=== PATIENT | male | born 1990 | race African-American/Black ===

== ENCOUNTER 2020-08-18 11:17 | Emergency (ER) | payer OTHER ==
--- NOTE | 2020-08-18 13:06 | ED Physician Documentation ---
History of Present Illness - Stated complaint Stated Complaint: R EAR PX - Chief complaint Chief Complaint: Heent - History obtained from History obtained from: Patient - Additonal information Additional information: Patient comes emergency department complaining of right ear pain that began 2 days ago. He denies fevers or chills. No upper respiratory symptoms. No allergies. Mild congestion. No trauma. The patient is not a swimmer. No diving or flying recently. He states he feels a pressure pain that wraps around the sides and bottom of his ear and that he hears a throbbing sound that sounds like chopper blades. No high-pitched tinnitus. No vertigo. Patient denies any neck injury. He states he is otherwise healthy. No specific dental pain or throat pain. Review of Systems Ten Systems: 10 systems reviewed and negative Constitutional: reports: Reviewed and negative Eyes: reports: Reviewed and negative Ears: reports: Ear pain, Tinnitus/ringing. denies: Drainage/discharge Nose: denies: Rhinorrhea / runny nose, Congestion Throat: reports: Reviewed and negative Cardiac: reports: Reviewed and negative Respiratory: denies: Cough GI: reports: Reviewed and negative : reports: Reviewed and negative Skin: reports: Reviewed and negative Musculoskeletal: reports: Reviewed and negative Neurologic: reports: Reviewed and negative Psychiatric: reports: Reviewed and negative Endocrine: reports: Reviewed and negative Immunocompromised: reports: Reviewed and negative PD PAST MEDICAL HISTORY - Past Medical History Past Medical History: No - Past Surgical History Past Surgical History: No - Present Medications Home Medications: Ambulatory Orders Medication Instructions Recorded Confirmed Acyclovir [Zovirax] 400 mg PO TID 10 Days #30 tablet 08/18/20 Ibuprofen [Motrin] 800 mg PO Q8H PRN #30 tablet 08/18/20 Pseudoephedrine HCl [Sudafed 240 mg PO DAILY #7 tab.er.24h 08/18/20 24-Hour] predniSONE [Prednisone] 60 mg PO DAILY #7 tablet 08/18/20 - Allergies Allergies/Adverse Reactions: Allergies Allergy/AdvReac Type Severity Reaction Status Date / Time No Known Drug Allergies Allergy Verified 08/18/20 18:44 - Social History Does the pt smoke?: No Smoking Status: Never smoker Does the pt drink ETOH?: Yes Does the pt have substance abuse?: No - Immunizations Immunizations are current?: Yes PD ED PE NORMAL - Vitals Vital signs reviewed: Yes - General General: Alert and oriented X 3, No acute distress - HEENT HEENT: Atraumatic, PERRL, EOMI, Moist mucous membranes, Other (Left tympanic membrane normal. Right tympanic membrane is not erythematous, but is dull and mildly distended. No purulent collection, though some clear fluid is noted be hind the eardrum. No TMJ tenderness. No lymphadenopathy around the ear. No facial swelling.) - Neck Neck: Supple, no meningeal sign, No adenopathy, Other (No muscular tenderness.) - Respiratory Respiratory: No respiratory distress - Derm Derm: Warm and dry - Extremities Extremities: No deformity - Neuro Neuro: Alert and oriented X 3 - Psych Psych: Normal mood, Normal affect Results - Vitals Vitals: Vital Signs - 24 hr 08/18/20 08/18/20 11:26 13:25 Temperature 36.9 C 36.9 C Heart Rate 73 67 Respiratory 18 14 Rate Blood Pressure 142/79 H 155/81 H O2 Saturation 100 100 Oxygen O2 Source Room air PD MEDICAL DECISION MAKING - ED course Complexity details: considered differential, d/w patient ED course: I discussed with the patient that he appears to have some fluid behind his right TM, but there is no evidence of infection. He does not have any lymphadenopathy, and does not have any pain with range of motion of his TMJ. No popping or clicking is noted, either. At this point in time, I am not sure exactly what is causing his pain, but I suspect that some of it is due to eustachian tube dysfunction with pressure buildup in the form of fluid behind his TM. We have discussed oral decongestants and [id number] analgesia. This is been only going on for a couple of days and will most likely blow over on his own; however, if the patient's symptoms do not seem to be getting better after the next week, he should follow-up with his primary care physician and discuss whether ENT referral would be a good idea. Departure - Departure Disposition: 01 Home, Self Care Clinical Impression: Acute ear pain Qualifiers: Laterality: right Qualified Code(s): H92.01 - Otalgia, right ear Eustachian tube dysfunction Qualifiers: Laterality: right Qualified Code(s): H69.81 - Other specified disorders of Eustachian tube, right ear Condition: Stable Instructions: ED Otitis Media Serous Adult Prescriptions: Ibuprofen [Motrin] 800 mg PO Q8H PRN #30 tablet PRN Reason: PAIN &/OR FEVER Pseudoephedrine HCl [Sudafed 24-Hour] 240 mg PO DAILY #7 tab.er.24h Forms: Activity restrictions Discharge Date/Time: 08/18/20 13:32
[2020-08-18 13:26] VITALS: BP 155/81
== END 2020-08-18 13:32 | disposition home or self-care (01) ==
LOC: ED 11:17
DX: H69.81 Other specified disorders of Eustachian tube, right ear (principal)
CPT/HCPCS: 99282

== ENCOUNTER 2020-08-18 18:41 | Emergency (ER) | payer OTHER ==
--- NOTE | 2020-08-18 19:30 | ED Physician Documentation ---
History of Present Illness - Stated complaint Stated Complaint: RT SIDE FACE NUMBNESS - Chief complaint Chief Complaint: Neuro - History obtained from History obtained from: Patient - Additonal information Additional information: the patient is a 30 y/o m w a cc of right sided facial weakness that started today. was seen earlier today for right ear pain. denies any upper or lower extremity weakness, cp/sob, fevers or any other complaints. patient reports he is otherwise healthy with no medical problems and is up to date on all of his immunizations. reports initial symptoms included right earache, some associated tingling in right mouth/buccal region. Review of Systems Constitutional: reports: Reviewed and negative Eyes: reports: Reviewed and negative Ears: reports: Ear pain Nose: reports: Reviewed and negative Throat: reports: Reviewed and negative Cardiac: reports: Reviewed and negative Respiratory: reports: Reviewed and negative GI: reports: Reviewed and negative : reports: Reviewed and negative Skin: reports: Reviewed and negative Musculoskeletal: reports: Reviewed and negative Neurologic: reports: Other (right sided facial weakness.) Psychiatric: reports: Reviewed and negative Endocrine: reports: Reviewed and negative Immunocompromised: reports: Reviewed and negative PD PAST MEDICAL HISTORY - Past Medical History Past Medical History: No - Past Surgical History Past Surgical History: No - Present Medications Home Medications: Ambulatory Orders Medication Instructions Recorded Confirmed Acyclovir [Zovirax] 400 mg PO TID 10 Days #30 tablet 08/18/20 Ibuprofen [Motrin] 800 mg PO Q8H PRN #30 tablet 08/18/20 Pseudoephedrine HCl [Sudafed 240 mg PO DAILY #7 tab.er.24h 08/18/20 24-Hour] predniSONE [Prednisone] 60 mg PO DAILY #7 tablet 08/18/20 - Allergies Allergies/Adverse Reactions: Allergies Allergy/AdvReac Type Severity Reaction Status Date / Time No Known Drug Allergies Allergy Verified 08/18/20 18:44 - Social History Does the pt smoke?: No Smoking Status: Never smoker Does the pt drink ETOH?: Yes Does the pt have substance abuse?: No - Immunizations Immunizations are current?: Yes PD ED PE NORMAL - Vitals Vital signs reviewed: Yes - General General: Alert and oriented X 3, No acute distress, Well developed/nourished - HEENT HEENT: Atraumatic, PERRL, Other (Paralysis of the right side of the face that includes the forehead and the right lower face unable to smile on the right sideUnable to completely close the right eyelidTympanic membranes intact bilaterally and clear) - Neck Neck: Supple, no meningeal sign - Cardiac Cardiac: RRR, No murmur - Respiratory Respiratory: Clear bilaterally - Abdomen Abdomen: Normal bowel sounds, Soft, Non tender, Non distended - Derm Derm: Warm and dry - Extremities Extremities: No deformity - Neuro Neuro: Alert and oriented X 3, Other (Right side of the face paralysis that includes the forehead and lower face unable to close the right eyelid otherwise no pronator drift strength is 5 out of 5 in bilateral upper and lower extremities normal [id number] normal [id number] normal rapid alternating movements.) - Psych Psych: Normal mood, Normal affect Results - Vitals Vitals: Vital Signs - 24 hr 08/18/20 08/18/20 08/18/20 18:44 19:01 20:01 Temperature 37.1 C Heart Rate 70 79 72 Respiratory 16 16 17 Rate Blood Pressure 142/85 H 183/102 H 183/93 H O2 Saturation 100 100 100 Oxygen O2 Source Room air PD MEDICAL DECISION MAKING - ED course Complexity details: considered differential (right sided bells palsy) Departure - Departure Disposition: 01 Home, Self Care Clinical Impression: [place]'s palsy Condition: Stable Instructions: ED [place] Palsy Follow-Up: your, doctor [Other] Prescriptions: predniSONE [Prednisone] 60 mg PO DAILY #7 tablet Acyclovir [Zovirax] 400 mg PO TID 10 Days #30 tablet Comments: follow up with your physician tomorrow. take acyclovir and prednisone as directed. return to the emergency department with any concerns.
[2020-08-18] MEDS ORDERED: predniSONE 20 MG TABLET PO STA (19:33)
[2020-08-18] MEDS ORDERED: ACYCLOVIR 200 MG CAPSULE PO STA (19:35)
[2020-08-18] MEDS ORDERED: CARBOXYMETHYLCELLULOSE OPHTH DROPS RIGHTEYE PRN (19:37)
[2020-08-18 20:02] VITALS: BP 183/93
== END 2020-08-18 20:24 | disposition home or self-care (01) ==
LOC: ED 18:41
DX: G51.0 Bell's palsy (principal); H69.81 Other specified disorders of Eustachian tube, right ear
CPT/HCPCS: 99282; 99284; A9270; J7512